=== PATIENT | female | born 1960 | race Caucasian/White ===

== ENCOUNTER → 2018-08-15 | Outpatient (CLI) | payer BC ==
--- NOTE | 2018-08-15 13:14 | KCIC ---
MR of the right knee HISTORY: Right knee pain and swelling. Chronic pain. Worse after a fall about one month ago. TECHNIQUE: Routine multiplanar sequences are obtained. FINDINGS: Signal within the posterior horn the medial meniscus with equivocal surface violation. No definite tear. Mild blunting of the free margin of the lateral meniscus with mild signal. The signal demonstrates subtle surface involvement. Anterior and posterior cruciate ligaments are intact. Medial collateral ligament is intact. Iliotibial band unremarkable. Fibular collateral ligament, biceps femoris tendon and popliteus tendon are intact. Extensor mechanism is intact. No acute retinacular tear. Small joint effusion. Moderate chondromalacia of the patellofemoral joint. Severe chondral thinning at the medial joint compartment. Mild lateral compartment degenerative change. No aggressive bone destruction. No acute fracture. No significant Valdes's cyst. Mild anterior subcutaneous edema. IMPRESSION: 1. Degenerative changes with probable subtle tears of the medial and lateral menisci. 2. Primary osteoarthritis. Electronically signed by: Ulises Metcalf MD (08/15/2018 1:11 PM) [facility]
== END | disposition home or self-care (01) ==
LOC: KCIC MRI 09:53
PROVIDERS: ATTEND Physician Assistant Medical
DX: M94.261 Chondromalacia, right knee (principal); M25.461 Effusion, right knee; M17.11 Unilateral primary osteoarthritis, right knee
CPT/HCPCS: 73721

== ENCOUNTER → 2020-11-09 | Outpatient (CLI) | payer BC ==
[~2020-11-09] MED LIST: AMLO-187 PO; ASPI81TA59 PO; CITA10TA4 PO; LEVO112C3 PO; LOSA100T14 PO; MECO10005 PO; METO50TA4 PO; OXYC-325 PO; TRAZ-123 PO; VITA25006 PO; VITA400T6 PO
== END ==
LOC: LAB 12:37
PROVIDERS: ATTEND Surgery
DX: Z01.812 Encounter for preprocedural laboratory examination (principal); N63.20 Unspecified lump in the left breast, unspecified quadrant; Z20.822 Contact with and (suspected) exposure to COVID-19
CPT/HCPCS: U0003; U0005

== ENCOUNTER 2020-11-11 09:09 | Day surgery (SDC) | payer BC ==
[~2020-11-11] VITALS: Ht 172.7 cm; Wt 107.0 kg
[~2020-11-11 09:09] MED LIST changes: +ACETAMINOPHEN 500 MG TABLET PO PRN; -AMLO-187 PO; -ASPI81TA59 PO; -CITA10TA4 PO; +HYDROmorphone 2 MG/ML VIAL IVP PRN; +IV RINGERS,LACTATED 1000ML 1,000 ML IV SCH; -LEVO112C3 PO; +LIDOCAINE 1% Multi-Dose 20 ML VIAL. INJ ONE; -LOSA100T14 PO; -MECO10005 PO; -METO50TA4 PO; -OXYC-325 PO; +PROCHLORPERAZINE 10 MG/2 ML VIAL. IVP PRN; -TRAZ-123 PO; -VITA25006 PO; -VITA400T6 PO; +fentaNYL PF VIAL 100 MCG/2 ML VIAL IVP PRN
[2020-11-11] MEDS ORDERED: AMLO-187 PO (10:10)
[2020-11-11] MEDS ORDERED: CITA10TA4 PO (10:10)
[2020-11-11] MEDS ORDERED: TRAZ-123 PO (10:10)
[2020-11-11] MEDS ORDERED: VITA25006 PO (10:10)
[2020-11-11] MEDS ORDERED: MECO10005 PO (10:10)
[2020-11-11] MEDS ORDERED: VITA400T6 PO (10:10)
[2020-11-11] MEDS ORDERED: LOSA100T14 PO (10:10)
[2020-11-11] MEDS ORDERED: METO50TA4 PO (10:10)
[2020-11-11] MEDS ORDERED: LEVO112C3 PO (10:10)
[2020-11-11] MEDS ORDERED: ASPI81TA59 PO (10:10)
[2020-11-11] MEDS ORDERED: fentaNYL PF VIAL 100 MCG/2 ML VIAL ONE (11:56)
[2020-11-11] MEDS ORDERED: LIDOCAINE 2% PF 5 ML VIAL. ONE (11:57)
[2020-11-11] MEDS ORDERED: DEXAMETHASONE SOD PHOS 4 MG/ML VIAL ONE (11:57)
[2020-11-11] MEDS ORDERED: ONDANSETRON PF 4 MG/2 ML VIAL. ONE (11:57)
[2020-11-11] MEDS ORDERED: MIDAZOLAM HCL/PF 2 MG/2 ML VIAL. ONE (11:57)
[2020-11-11] MEDS ORDERED: PROPOFOL 10 MG/ML (20ML) VIAL. IV ONE (11:57)
[2020-11-11] MEDS ORDERED: BUPIVACAINE-EPI 0.5%-1:200000 MPF 30 ML VIAL. ONE (12:54)
--- NOTE | 2020-11-11 13:32 | RAD ---
EXAM: Sonographic guided left breast needle-wire localization; left breast post localization mammogra m. HISTORY: 60-year-old female presents for needle-wire localization of a mass within the left breast de monstrate on a sonogram performed 10/25/2020. TECHNIQUE: The risks of the procedure were discussed with the patient and written and verbal consent was obtained. A timeout was performed. Sonographic imaging of the left breast was performed and the r etroareolar nodule concern was identified. The skin in this location was sterilely prepped, draped an d infiltrated with 1 percent lidocaine. A needle was advanced into the lesion of concern and the wire was deployed with the hook within the lesion. The wire was secured to the skin surface. A post local ization mammogram demonstrates the wire in expected position. The patient tolerated the procedure wit hout difficulty and was transferred to the surgical suite in stable condition. A surgical specimen radiograph demonstrates inclusion of the lesion of concern. IMPRESSION: Successful sonographic guided needle-wire localization of a mass within the retroareolar aspect of the left breast and inclusion of the lesion of concern within a specimen radiograph. Electronically signed by: Melody Stephens MD (11/11/2020 1:30 PM) [id number]
--- NOTE | 2020-11-11 13:38 | PDOC4 ---
Operative Note Operative Note Date: November 112020 at 1335 Preoperative diagnosis: Left breast mass Postoperative diagnosis: Same Procedure: Needle localized left breast biopsy Surgeon: Gustavo Specimen: Left breast mass Dictation: Patient is a 60-year-old female who had a mammogram was found to have a suspicious lesion in her left breast. Patient wished to have a open breast biopsy. The procedure of needle localization breast biopsy was explained to the patient detail risk benefits were also discussed occluding bleeding infection alternatives this procedure also discussed with the patient who seemed to understand and gave a verbal written consent to have the procedure performed. Patient was taken to radiology where she underwent needle localization and was taken to the operating room placed in the supine position general anesthesia was initiated once patient was sleeping intubated her left breast was prepped and draped usual sterile fashion using ChloraPrep. An area around the nipple areolar complex was injected with quarter percent Marcaine with epinephrine a curvilinear incision was made at the areolar border is carried down through the subcutaneous tissues with electrocautery was noted that the localization wire was very superficial just beneath the nipple areolar complex. Large biopsy was taken with electrocautery and sent for pathology. The mass was marked with a short stitch superficial long stitch lateral and 2 stitches on the deep side. The wound was then closed in 2 layers of deep layer running 3-0 Vicryl and the skin was reapproximated for subcuticular Monocryl Mastisol Steri-Strips and island dressings were applied. Patient was awakened and extubated in the operating room taken to recovery in stable condition all sponge instrument needle counts listed as correct estimated blood loss 10 mL AVANI RUTHERFORD MD Nov 11, 2020 13:38
[2020-11-11] MEDS ORDERED: OXYC-325 PO (13:40)
[2020-11-11] MEDS ORDERED: MORPHINE SULFATE 2 MG/ML INJ. ONE (13:41)
--- NOTE | 2020-11-11 13:41 | DISCH ---
DISCHARGE INSTRUCTIONS Condition on Discharge Condition on Discharge: Stable Activity After Discharge Activity Instructions for Disc: Avoid exertion Diet after Discharge Diet after Discharge: Regular Wound Incision Care Other wound/incision instructi: May shower in 24-hour Contacting the after DC Call your doctor for: If your condition worsens Follow-Up Follow up with: Dr. Rutherford in 2 weeks AVANI RUTHERFORD MD Nov 11, 2020 13:41
[2020-11-11] MEDS: MORPHINE SULFATE 2 MG/ML INJ. IVP PRN ×2 (13:43→13:56)
[2020-11-11] MEDS ORDERED: oxyCODONE/APAP 5/325 1 TAB TABLET PO ONE (13:45)
[2020-11-11 13:58] VITALS: BP 143/65
--- NOTE | 2020-11-15 13:07 | PATHOLOGY ---
[facility] Accession Number: [id number] . 01 Material submitted: . breast - LEFT BREAST BIOPSY- WIRE LOCALIZATION. Modifiers: left . 01 Clinical history: . SHORT STITCH IS SUPERFICIAL, LONG IS LATERAL, TWO STITCHES ARE DEEP . 02 Diagnosis: Breast tissue, wire localized left breast biopsy: - Subareolar duct adenoma, measuring 1.4 cm in greatest dimension, showing focal moderate/florid ductal epithelial hyperplasia, and focally abutting the anterior margin of resection. - Small focus of atypical ductal epithelial hyperplasia. - Proliferative fibrocystic changes with the following components: - Mild to moderate ductal epithelial hyperplasia, focal. - Stromal fibrosis. - Duct ectasia/duct stasis. - Cystic change. - Apocrine metaplasia. - Sclerosing adenosis, focal. . (JPM:diana/kaleb; 11/12/2020) MBR 11/15/2020 1119 Local . 02 Comment: Sections of the localized lesion reveal a fairly well-circumscribed proliferation of crowded ducts within a fibrous stroma. Some of the ducts are expanded by a ductal epithelial proliferation. A panel of immunoperoxidase stains is obtained on A23 and yields the following results: . P63 (A23): Presence of myoepithelial cells around crowded ducts within the lesion . Smooth muscle myosin heavy chain (A23): Presence of myoepithelial cells within crowded ducts of lesion . CK5/6: Ductal epithelial proliferation within expanded ducts shows mosaic pattern of positivity . The morphologic and immunophenotypic findings are supportive of the diagnosis of a subareolar duct adenoma showing focal usual ductal epithelial hyperplasia. The lesion measures 1.4 cm in greatest dimension, and focally abuts the anterior margin of resection. The remaining breast tissue shows proliferative fibrocystic changes and focal sclerosing adenosis. In addition, there is a small focus of atypical ductal epithelial proliferation measuring between 1 mm and 2 mm in greatest dimension, consistent with atypical ductal epithelial hyperplasia. This focus is 6-7 mm from the closest (anterior) margin of resection. . Special stains performed: Immunoperoxidase stain for p63, smooth muscle myosin heavy chain, CK5/6 on A23 . (JPM:mml; 11/15/2020) . 02 Electronically signed: . Elvis Jeffries MD, Pathologist NPI- [id number] . 01 Gross description: . Fixative: Formalin Labeled: Left breast biopsy-wire localization Specimen received: A previously compressed lumpectomy Oriented: Short stitch is superficial, long stitch is lateral, 2 stitches are deep and a needle localization wire that inserts superiorly Dimensions: 7.2 medial to lateral x 6.0 superior to inferior x 2.7 superficial to deep Weight: 61 g . The specimen is inked as follows: superior-blue inferior-red anterior-green posterior-black lateral-orange medial-yellow . Sectioned from: Lateral to medial Number of slices: 13 Lesion: no discrete lesion, area of hemorrhage or fat necrosis is identified Biopsy cavity/clip: neither identified Uninvolved breast parenchyma: fatty and unremarkable with 20% fibrous tissue . Nurse Prn sections to include the entirety of nearly every other central section as follows: A1: slice 1, represented, lateral margin A2-A5: slice 2, entirely submitted A6-A10: slice 4, entirely submitted A11-A14: slice 7, entirely submitted A15-A17: slice 9, entirely submitted A18-A20: slice 10, entirely submitted A21-A23: slice 11, entirely submitted A24: slice 13, represented . The cold ischemic time is 19 minutes. The total time in formalin is 32 hours. (EKUK; 11/11/2020) DKA/DKA 11/11/2020 1905 Local . 02 Pathologist provided ICD-10: N60.12, N60.32, N60.42, N60.82, N60.22 . 02 CPT . 147683, [id number], [id number] Specimen Comment: A courtesy copy of this report has been sent to [phone], [phone] Specimen Comment: [id number] Specimen Comment: Report sent to / DR ALDANA Performed at: 01 [facility] [address], [place], [place] [id number] MD Sergio Moon MD Phone: [phone] Performed at: 02 [facility] [address] [place], [place] [id number] MD Elvis Jeffries MD Phone: [phone]
== END 2020-11-11 14:44 | disposition home or self-care (01) ==
LOC: SURG 09:09
PROVIDERS: ATTEND Surgery
DX: N63.20 Unspecified lump in the left breast, unspecified quadrant (principal); R92.8 Other abnormal and inconclusive findings on diagnostic imaging of breast; N60.32 Fibrosclerosis of left breast; N60.42 Mammary duct ectasia of left breast; N60.82 Other benign mammary dysplasias of left breast; N60.22 Fibroadenosis of left breast; I10 Essential (primary) hypertension; E03.9 Hypothyroidism, unspecified; F41.9 Anxiety disorder, unspecified; Z79.82 Long term (current) use of aspirin; Z79.899 Other long term (current) drug therapy; Z98.890 Other specified postprocedural states
CPT/HCPCS: 19101; 19285; 76098; 77065; A4209; A4364; A4930; C1819; J0690; J1100; J2250; J2270; J2405; J2704; J3010; J3490; A4452